=== PATIENT | female | born 1965 | race Caucasian/White ===

== ENCOUNTER → 2024-06-27 07:05 | Outpatient (REF) | payer BC, SELFPAY | LOC: HWRAD 07:05 | PROVIDERS: ATTENDING PHYSICIAN Urology; FAMILY PHYSICIAN Nurse Practitioner Family | DX: N20.0 Calculus of kidney (principal) | CPT/HCPCS: 76775 ==

== ENCOUNTER → 2025-05-28 15:18 | Outpatient (REF) | payer BC, SELFPAY | LOC: HWRAD 15:18 | PROVIDERS: ATTENDING PHYSICIAN Urology; FAMILY PHYSICIAN Nurse Practitioner Family | DX: N20.0 Calculus of kidney (principal) | CPT/HCPCS: 76775 ==